=== PATIENT | male | born 1985 | race Caucasian/White ===

== ENCOUNTER → 2022-05-05 10:09 | Outpatient (BNVA) | payer OTHER, SELFPAY | PROVIDERS: Family Provider Family Medicine; Visit Provider Registered Nurse | DX: Z02.1 Encounter for pre-employment examination (principal) | CPT/HCPCS: 80307 ==

== ENCOUNTER 2024-05-07 10:53 | Outpatient (CLI) | payer OTHER, SELFPAY ==
--- NOTE | 2024-05-07 11:47 | XR_ITS ---
WS: [id number] Examination: XR shoulder RT min 2V* [id number] Reason for Exam: BILATERAL SHOULDER PAIN Date: May 07, 2024 Comparison: None. Findings: Bone density is maintained. There is no destruction. There is no displaced fracture. No dislocation seen. Mild chronic changes are present. There our early degenerative changes at the AC joint XR/XR shoulder RT min 2V* [id number] Impression: There is no acute bony abnormality noted.
--- NOTE | 2024-05-07 11:47 | XR_ITS ---
WS: [id number] Examination: XR shoulder LT min 2V* [id number] Reason for Exam: BILATERAL SHOULDER PAIN Date: May 07, 2024 Comparison: None. Findings: The bone density is maintained. There is no destruction. There is no displaced fracture or dislocation. XR/XR shoulder LT min 2V* [id number] Impression: No acute bony abnormality of the left shoulder is appreciated.
== END 2024-05-07 10:54 | disposition home or self-care (01) ==
PROVIDERS: Family Provider Family Medicine; Visit Provider Nurse Practitioner Family
DX: M25.511 Pain in right shoulder (principal); M25.512 Pain in left shoulder
CPT/HCPCS: 73030